=== PATIENT | male | born 1970 | race Two or more races ===

== ENCOUNTER 2023-03-04 10:03 | Inpatient (IN) | payer OTHER ==
[~2023-03-04] VITALS: Ht 165.1 cm; Wt 60.3 kg
[2023-03-04 10:37] VITALS: PULSE 96; RESP 21; O2SAT 94
[2023-03-04 10:54] LABS: White Blood Cell 3.2 10^3/uL (4.4-10.8)
[2023-03-04 10:55] LABS: Hematocrit 32.2 % (41.0-53.0); Hemoglobin 9.7 g/dL (13.5-17.5); Mean Corpuscular Hemoglobin 19.6 pg (28.0-32.0); Mean Corpuscular Hgb Conc. 30.1 g/dL (32.0-36.0); Mean Corpuscular Volume 65.1 fL (80.0-100.0); Red Blood Cells 4.95 10^6/uL (4.5-5.90)
[2023-03-04 10:59] LABS: Red Cell Distribution Width 23.6 % (11.8-14.3)
[2023-03-04 11:16] LABS: Albumin 3.1 g/dL (3.4-5.0); Calcium 8.1 mg/dL (8.5-10.1); Magnesium 2.4 mg/dL (1.6-2.6); Potassium 3.9 mmol/L (3.5-5.1)
[2023-03-04 11:19] LABS: BUN/Creatinine Ratio 3.8 (10.0-20.0); Bilirubin, Total 1.8 mg/dL (0.2-1.0); Total Protein 8.5 g/dL (6.4-8.2)
[2023-03-04 12:11] LABS: Basophils % (manual) 0 (0.0-2.0); Blast Cells 0; Metamyelocytes % 0; Myelocytes % 0; Promyelocytes % 0; Reactive Lymphocytes 0
[2023-03-04 12:23] LABS: Band Neutrophils % (manual) 2; Lymphocytes % (manual) 21 (10.0-50.0)
[2023-03-04 12:24] LABS: Anisocytosis Slight; Eosinophils % (manual) 1 (0-7); Hypochromia Moderate; Monocytes % (manual) 7 (0-12)
[2023-03-04 12:25] LABS: Giant Platelets Moderate; Platelet Estimate Decreased
[2023-03-04] MEDS ORDERED: ONDANSETRON HCL 4 MG/2 ML VIAL IV PRN (15:15)
[2023-03-04] MEDS ORDERED: LORazepam 2MG/ML-1ML VIAL IV PRN (15:15)
[2023-03-04] MEDS ORDERED: MORPHINE SULFATE INJ 2 MG/ml SYRG IV PRN (15:15)
[2023-03-04] MEDS: chlordiazePOXIDE HCL 25 MG CAP PO SCH ×2 (16:10→23:26)
[2023-03-04 16:43] LABS: Magnesium 2.3 mg/dL (1.6-2.6)
[2023-03-04 16:46] LABS: Phosphorus 2.7 mg/dL (2.5-4.90)
[2023-03-04 16:50] LABS: Folate (Folic Acid) 12.38 ng/mL (5.38-24)
[2023-03-04] MEDS: LACTULOSE 20Gm/30ML SOLN PO SCH ×2 (18:27→23:28)
[2023-03-04 20:20] VITALS: PULSE 102; RESP 17; O2SAT 97
[2023-03-05 05:00] VITALS: BP 158/83; PULSE 83; RESP 19; TEMP 98.4; O2SAT 96
[2023-03-05 06:09] LABS: Basophils # (auto) 0 10 ^3/uL (0-0.2); Basophils % (auto) 0.3 % (0.0-2.0); Eosinophils # (auto) 0 10 ^3/uL (0-0.8); Eosinophils % (auto) 0.4 % (0.0-7.0); Hematocrit 31.9 % (41.0-53.0); Hemoglobin 10.3 g/dL (13.5-17.5); Lymphocytes # (auto) 0.8 10 ^3/uL (0.4-5.4); Lymphocytes % (auto) 9.7 % (10.0-50.0); Mean Corpuscular Hemoglobin 27.3 pg (28.0-32.0); Mean Corpuscular Hgb Conc. 32.4 g/dL (32.0-36.0); Mean Corpuscular Volume 84.1 fL (80.0-100.0); Monocytes # (auto) 0.7 10 ^3/uL (0-1.3); Monocytes % (auto) 8.3 % (0.0-12.0); Neutrophils # (auto) 7.1 10 ^3/uL (1.6-8.6); Neutrophils % (auto) 81.3 % (37.0-80.0); Red Blood Cells 3.79 10^6/uL (4.5-5.90); Red Cell Distribution Width 15.5 % (11.8-14.3); White Blood Cell 8.7 10^3/uL (4.4-10.8)
[2023-03-05] MEDS: LACTULOSE 20Gm/30ML SOLN PO SCH ×4 (06:11→23:26)
[2023-03-05] MEDS: chlordiazePOXIDE HCL 25 MG CAP PO SCH ×3 (06:11→21:15)
[2023-03-05 06:35] LABS: Potassium 4.3 mmol/L (3.5-5.1)
[2023-03-05 06:44] LABS: Albumin 2.9 g/dL (3.4-5.0); BUN/Creatinine Ratio 28.7 (10.0-20.0); Bilirubin, Total 0.4 mg/dL (0.2-1.0); Total Protein 7.2 g/dL (6.4-8.2)
[2023-03-05 07:30] VITALS: PULSE 84; RESP 17; O2SAT 97
[2023-03-05 09:00] VITALS: BP 136/86; PULSE 80; RESP 17; TEMP 97.9; O2SAT 96
[2023-03-05] MEDS: PANTOPRAZOLE 40 MG/10 ML VIAL INJ IV SCH (10:49)
[2023-03-05] MEDS: FOLIC ACID 1 MG, MULTIPLE VITAMIN 10 ML, MAGNESIUM SULF SDV 50% 8 MEQ, THIAMINE INJ 100... INJ SCH ×5 (12:00)
[2023-03-05 12:45] VITALS: BP 135/90; PULSE 105; RESP 18; TEMP 99.1; O2SAT 98
[2023-03-05 15:30] LABS: % Iron Saturation 14.2 % (20-55)
[2023-03-05 16:56] VITALS: BP 138/87; PULSE 89; RESP 19; TEMP 98.6; O2SAT 97
[2023-03-05 22:00] VITALS: BP 138/78; PULSE 86; RESP 17; TEMP 98.4; O2SAT 98
[2023-03-05] MEDS: LORazepam 0.5 MG TAB PO PRN (22:43)
[2023-03-06] VITALS (8 sets, daily range): BP systolic 116–143; BP diastolic 71–88; PULSE 79–98; RESP 18; TEMP 37; O2SAT 96–98
[2023-03-06] MEDS: LACTULOSE 20Gm/30ML SOLN PO SCH ×4 (05:53→22:23)
[2023-03-06 05:58] LABS: Hemoglobin 9.8 g/dL (13.5-17.5); White Blood Cell 4.7 10^3/uL (4.4-10.8)
[2023-03-06 06:01] LABS: Hematocrit 31.9 % (41.0-53.0); Mean Corpuscular Hgb Conc. 30.7 g/dL (32.0-36.0); Mean Corpuscular Volume 65.3 fL (80.0-100.0); Red Blood Cells 4.88 10^6/uL (4.5-5.90)
[2023-03-06 06:20] LABS: Potassium 3.3 mmol/L (3.5-5.1)
[2023-03-06 06:31] LABS: Albumin 2.9 g/dL (3.4-5.0); BUN/Creatinine Ratio 12.1 (10.0-20.0); Bilirubin, Total 1.9 mg/dL (0.2-1.0); Calcium 7.8 mg/dL (8.5-10.1); Total Protein 7.9 g/dL (6.4-8.2)
[2023-03-06 06:47] LABS: Red Cell Distribution Width 23.9 % (11.8-14.3)
[2023-03-06 06:49] LABS: Basophils % (manual) 0 (0.0-2.0); Blast Cells 0; Eosinophils % (manual) 0 (0-7); Promyelocytes % 0; Reactive Lymphocytes 0
[2023-03-06] MEDS ORDERED: POTASSIUM CHL 20 Meq TABLET PO ONE (07:45)
[2023-03-06 08:23] LABS: INR 1.48 (0.9-1.15); Partial Thromboplastin Time 33.6 SEC (24.5-34.5); Prothrombin Time 15.1 sec (9.3-11.8)
[2023-03-06] MEDS: chlordiazePOXIDE HCL 25 MG CAP PO SCH ×2 (09:25→22:23)
[2023-03-06] MEDS: PANTOPRAZOLE 40 MG/10 ML VIAL INJ IV SCH (09:26)
[2023-03-06 10:43] LABS: Band Neutrophils % (manual) 6; Lymphocytes % (manual) 9 (10.0-50.0); Metamyelocytes % 2; Monocytes % (manual) 15 (0-12); Myelocytes % 7
[2023-03-06 10:44] LABS: Anisocytosis Slight; Hypochromia Moderate
[2023-03-06 10:46] LABS: Platelet Estimate Decreased
[2023-03-06 10:51] LABS: Target Cell FEW
[2023-03-06 10:52] LABS: Giant Platelets Few; Ovalocytes FEW
[2023-03-06] MEDS: FOLIC ACID 1 MG, MULTIPLE VITAMIN 10 ML, MAGNESIUM SULF SDV 50% 8 MEQ, THIAMINE INJ 100... INJ SCH ×5 (12:00)
[2023-03-06] MEDS ORDERED: FERROUS SULFATE 325mg EC TAB PO ONE (13:15)
[2023-03-06] MEDS: LORazepam 0.5 MG TAB PO PRN (20:04)
[2023-03-07] MEDS: LACTULOSE 20Gm/30ML SOLN PO SCH ×3 (06:00→17:54)
[2023-03-07] MEDS ORDERED: chlordiazePOXIDE HCL 25 MG CAP PO SCH (07:00)
[2023-03-07 09:00] VITALS: BP 130/86; PULSE 75; RESP 18; TEMP 98.1; O2SAT 98
[2023-03-07 09:02] LABS: BUN/Creatinine Ratio 13.2 (10.0-20.0); Calcium 8.5 mg/dL (8.5-10.1); Potassium 3.4 mmol/L (3.5-5.1)
[2023-03-07] MEDS: PANTOPRAZOLE 40 MG/10 ML VIAL INJ IV SCH (09:50)
[2023-03-07] MEDS: FOLIC ACID 1 MG, MULTIPLE VITAMIN 10 ML, MAGNESIUM SULF SDV 50% 8 MEQ, THIAMINE INJ 100... INJ SCH ×5 (12:00)
[2023-03-07 13:00] VITALS: BP 166/111; PULSE 85; RESP 18; TEMP 97.5; O2SAT 99
[2023-03-07] MEDS ORDERED: POTASSIUM CHL 10 Meq TABLET PO ONE (13:30)
[2023-03-07] MEDS ORDERED: HALOPERIDOL LACTATE 5 MG/ML INJ VIAL IM PRN (14:45)
[2023-03-07 17:00] VITALS: BP 143/90; PULSE 71; RESP 18; TEMP 97.8; O2SAT 100
[2023-03-07 20:00] VITALS: PULSE 103; RESP 18
[2023-03-07 22:00] VITALS: BP 145/92; PULSE 103; RESP 18; TEMP 98.1; O2SAT 97
[2023-03-07] MEDS: LORazepam 0.5 MG TAB PO PRN (22:28)
[2023-03-08] MEDS: LACTULOSE 20Gm/30ML SOLN PO SCH ×4 (00:30→17:55)
[2023-03-08 08:00] VITALS: PULSE 104; PULSE 82; RESP 19
[2023-03-08 09:00] VITALS: BP 124/81; PULSE 82; RESP 20; TEMP 98.1; O2SAT 96
[2023-03-08 09:06] LABS: Anti-Centromere B Antibody <0.2 AI (0.0-0.9); Anti-Jo-1 Antibody <0.2 AI (0.0-0.9); Anti-dsDNA Antibody <1 IU/mL (0-9); Antichromatin Antibody <0.2 AI (0.0-0.9); Antiscleroderma-70 Antibody <0.2 AI (0.0-0.9); RNP Antibody <0.2 AI (0.0-0.9); Sjogren's Anti-SS-A Antibody <0.2 AI (0.0-0.9); Sjogren's Anti-SS-B Antibody <0.2 AI (0.0-0.9); Smith Antibody <0.2 AI (0.0-0.9)
[2023-03-08] MEDS: PANTOPRAZOLE 40 MG TAB PO SCH (09:33)
[2023-03-08 11:41] LABS: Albumin 2.7 g/dL (3.4-5.0); Potassium 3.7 mmol/L (3.5-5.1)
[2023-03-08 11:45] LABS: BUN/Creatinine Ratio 11.3 (10.0-20.0); Bilirubin, Total 1.2 mg/dL (0.2-1.0); Total Protein 7.6 g/dL (6.4-8.2)
[2023-03-08 11:47] LABS: Hematocrit 31.2 % (41.0-53.0); Hemoglobin 9.3 g/dL (13.5-17.5); Mean Corpuscular Hemoglobin 19.9 pg (28.0-32.0); Mean Corpuscular Hgb Conc. 29.9 g/dL (32.0-36.0); Mean Corpuscular Volume 66.6 fL (80.0-100.0); Red Blood Cells 4.68 10^6/uL (4.5-5.90); White Blood Cell 5.5 10^3/uL (4.4-10.8)
[2023-03-08 11:59] LABS: Red Cell Distribution Width 25.2 % (11.8-14.3)
[2023-03-08 12:06] LABS: Band Neutrophils % (manual) 0; Basophils % (manual) 0 (0.0-2.0); Blast Cells 0; Eosinophils % (manual) 0 (0-7); Metamyelocytes % 0; Myelocytes % 0; Promyelocytes % 0
[2023-03-08 13:00] VITALS: BP 120/76; PULSE 85; RESP 20; TEMP 98.3; O2SAT 96
[2023-03-08 16:25] LABS: Anisocytosis Moderate; Hypochromia Marked; Lymphocytes % (manual) 37 (10.0-50.0); Monocytes % (manual) 20 (0-12); Platelet Estimate Decreased; Reactive Lymphocytes 2; Target Cell FEW
[2023-03-08 17:00] VITALS: BP 124/73; PULSE 87; RESP 20; TEMP 98.5; O2SAT 96
[2023-03-08 20:00] VITALS: PULSE 79; PULSE 96; RESP 20
[2023-03-09] MEDS: LACTULOSE 20Gm/30ML SOLN PO SCH ×3 (00:29→11:33)
[2023-03-09 04:07] LABS: Vitamin B1, Whole Blood 78.7 nmol/L (66.5-200.0)
[2023-03-09 05:04] VITALS: BP 134/90; PULSE 79; RESP 20; O2SAT 97
[2023-03-09 08:00] VITALS: PULSE 74
[2023-03-09 09:12] VITALS: BP 106/69; PULSE 85; RESP 19; O2SAT 96
[2023-03-09] MEDS: PANTOPRAZOLE 40 MG TAB PO SCH (09:19)
[2023-03-09 13:00] VITALS: BP 109/80; PULSE 91; RESP 18; O2SAT 98
== END 2023-03-09 16:16 | disposition home or self-care (01) | DRG 53 ==
LOC: ER 10:03 → TELE 15:23 → TELE-WESTW 03-05 04:47
PROVIDERS: ADMIT Internal Medicine Pulmonary Disease
DX: G40.509 Epileptic seizures related to external causes, not intractable, without status epilepticus (principal); K70.31 Alcoholic cirrhosis of liver with ascites; D69.59 Other secondary thrombocytopenia; K70.11 Alcoholic hepatitis with ascites; D50.9 Iron deficiency anemia, unspecified; F10.239 Alcohol dependence with withdrawal, unspecified; K80.20 Calculus of gallbladder without cholecystitis without obstruction; K76.0 Fatty (change of) liver, not elsewhere classified; Y90.4 Blood alcohol level of 80-99 mg/100 ml
CPT/HCPCS: 36415; 70450; 70551; 74176; 76705; 80048; 80053; 80320; 82140; 82607; 82746; 83036; 83516; 83540; 83550; 83615; 83735; 84100; 84425; 85007; 85025; 85027; 85610; 85730; 86225; 86235; 95819; C9113; G0378